=== PATIENT | female | born 2000 | race American Indian/Alaskan Native ===

== ENCOUNTER 2021-01-23 18:58 | Emergency (ER) | payer SELFPAY ==
[2021-01-23] MEDS ORDERED: HALOPERIDOL LACTATE 5 MG/1 ML INJ IM ONE (19:19)
--- NOTE | 2021-01-23 19:21 | Emergency Department Report ---
ED General Adult HPI - General Stated complaint: ANXIETY ATTACK Time Seen by Provider: 01/23/21 19:19 - History of Present Illness Initial comments: Patient presents by ambulance secondary to anxiety. History is obtained from EMS as the patient will not speak. She is having a panic attack. They report that the patient started to have a panic attack at home. She thought that she might be having an allergic reaction because she was in the proximity grapes. 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 She would did not come into contact with the grapes. Family try to get her calm down. They were unsuccessful. They called EMS. EMS has been try to get her to calm down. They have been unsuccessful. Again, patient will not converse. She will look around the room. She is hyperventilating but will not interact in any other form or fashion. History is obtained from EMS. - Related Data Allergies Allergy/AdvReac Type Severity Reaction Status Date / Time grape AdvReac Anaphylaxis Verified 01/23/21 19:34 orange AdvReac Anaphylaxis Verified 01/23/21 19:34 ED Review of Systems ROS: Stated complaint: ANXIETY ATTACK Other details as noted in HPI Comment: Unobtainable due to pts medical conditions ED Past Medical Hx - Past Medical History Previous Medical History?: Yes Additional medical history: anxiety per EMS - Family History Family history: other ( cannot be obtained from the patient secondary to hyperventilation) ED Physical Exam - General Limitations: Physical Limitation ( hyperventilation), Other ( She is not hypoxic. Pulse ox by EMS was normal.) General appearance: alert, in distress - Head Head exam: Present: atraumatic, normocephalic, normal inspection - Eye Eye exam: Present: normal appearance, EOMI. Absent: scleral icterus - ENT ENT exam: Present: normal exam, mucous membranes dry, normal external ear exam - Neck Neck exam: Present: normal inspection. Absent: lymphadenopathy - Respiratory Respiratory exam: Present: normal lung sounds bilaterally, other ( hyperventilating) - Cardiovascular Cardiovascular Exam: Present: normal rhythm, tachycardia - GI/Abdominal GI/Abdominal exam: Present: soft - Extremities Exam Extremities exam: Present: normal capillary refill. Absent: pedal edema - Back Exam Back exam: Absent: CVA tenderness (R), CVA tenderness (L) - Neurological Exam Neurological exam: Present: alert, reflexes normal, other ( hyperventilating. She is not verbal. She will look around the room and track. She would not follow any commands.) - Psychiatric Psychiatric exam: Present: anxious - Skin Skin exam: Present: warm, dry ED Course Vital Signs 01/23/21 01/23/21 01/23/21 19:37 19:50 19:58 Temperature 98.7 F Pulse Rate 122 H Respiratory 22 Rate Blood Pressure Blood Pressure 134/82 [Left] O2 Sat by Pulse 99 100 100 Oximetry 01/23/21 01/23/21 20:01 20:15 Temperature Pulse Rate 110 H 116 H Respiratory 19 24 Rate Blood Pressure 109/71 109/71 Blood Pressure [Left] O2 Sat by Pulse 100 100 Oximetry - Reevaluation(s) Reevaluation #1: 01/23/21 19:20 1910- EMS was met upon arrival. Haldol was ordered. Reevaluation #2: 01/23/21 20:06 Patient is now conversing. Reevaluation #3: 01/23/21 20:33 Patient is now conversant. She feels better. She states that her family member opened a can of orange juice in her presence. This was simply within the same room as her. She smelled orange juice and she states that that is what caused her allergic reaction. She had no throat tightness. She had no hives. She had no rash. She states that after an allergic reaction, she always has a panic attack. She states that she feels better now. ED Medical Decision Making - Medical Decision Making Patient presented with hyperventilation. I truly believe this was an anxiety attack. I do not believe this represents an allergic reaction. It would be unusual for someone to smell something and have an allergic reaction in that fashion. Regardless, patient is feeling better. There is no airway compromise. She has no evidence of hives or angioedema. She was treated symptomatically. She was no longer hyperventilating. Critical Care Time: No Critical care attestation.: If time is entered above; I have spent that time in minutes in the direct care of this critically ill patient, excluding procedure time. ED Disposition Clinical Impression: Panic attack Disposition: 01 HOME / SELF CARE / HOMELESS Is pt being admited?: No Does the pt Need Aspirin: No Condition: Stable Instructions: Panic Attack Additional Instructions: Avoid oranges, grapes, and other things you may react to. Continue to use Benadryl [id number]. Return for problems. Follow-up with your regular doctor for recheck. Referrals: SUSHIL GERMAIN MD [Staff Physician] - 3-5 Days PRIMARY CAREMD [Referring] - 3-5 Days
[2021-01-23] MEDS ORDERED: diphenhydrAMINE 50 MG/ML VIAL IV ONE (20:05)
[2021-01-23 20:24] VITALS: BP 109/71
== END 2021-01-24 01:30 | disposition home or self-care (01) ==
LOC: ED 18:58
DX: F41.0 Panic disorder [episodic paroxysmal anxiety] (principal); Z91.018 Allergy to other foods
CPT/HCPCS: 96372; 99283; J1630; J1200

== ENCOUNTER 2022-01-05 10:11 | Emergency (ER) | payer SELFPAY ==
[2022-01-05] MEDS ORDERED: SODIUM CHLORIDE 0.9% 1000 ML 1,000 ML IV ONE (10:39)
[2022-01-05 11:51] LABS: Alanine Aminotransferase 12 units/L (7-56); Albumin 4.7 g/dL (3.9-5); Blood Urea Nitrogen 8 mg/dL (7-17); Calcium 9.8 mg/dL (8.4-10.2); Hemolysis Index 6
[2022-01-05 12:05] LABS: Basophils % (Auto) 0.7 % (0.0-1.8); Eosinophils # (Auto) 0.1 K/mm3 (0.0-0.4); Eosinophils % (Auto) 1.8 % (0.0-4.3); Hematocrit 38.6 % (30.3-42.9); Hemoglobin 12.9 gm/dl (10.1-14.3); Lymphocytes % (Auto) 15.8 % (13.4-35.0); Mean Corpuscular HGB Conc 34 % (30-34); Mean Corpuscular Volume 97 fl (79-97); Monocytes # (Auto) 0.3 K/mm3 (0.0-0.8); Monocytes % (Auto) 4.3 % (0.0-7.3); Platelet Count 234 K/mm3 (140-440); Red Blood Count 3.98 M/mm3 (3.65-5.03); Red Cell Distribution Width 14.1 % (13.2-15.2)
[2022-01-05 12:07] LABS: Color,Urine Yellow (Yellow)
[2022-01-05 12:10] LABS: Amorphous Crystals,Urine Few; Bacteria,Urine 1+ /HPF (Negative); Mucus,Urine 3+ /HPF
[2022-01-05 12:12] LABS: HCG Qualitative,Urine Negative (Negative)
[2022-01-05 12:13] LABS: BUN/Creatinine Ratio 13
[2022-01-05 12:15] LABS: Amphetamine Screen,Urine Negative; Benzodiazepines Screen,Urine Negative; Cannabinoid Screen,Urine Negative; Cocaine Screen,Urine Negative; Methadone Screen,Urine Negative; Opiate Screen,Urine Negative
[2022-01-05 12:38] VITALS: BP 109/69
--- NOTE | 2022-01-05 12:44 | Emergency Department Report ---
ED General Adult HPI - General Chief complaint: Overdose Stated complaint: POSS OVERDOSE PUI?: No Time Seen by Provider: 01/05/22 10:36 Source: patient, family Mode of arrival: Ambulatory Limitations: No Limitations - History of Present Illness Severity scale (0 -10): 0 - Related Data Allergies Allergy/AdvReac Type Severity Reaction Status Date / Time blueberry Allergy Anaphylaxis Verified 01/05/22 10:18 grape AdvReac Anaphylaxis Verified 01/23/21 19:34 orange AdvReac Anaphylaxis Verified 01/23/21 19:34 ED Review of Systems ROS: Stated complaint: POSS OVERDOSE Other details as noted in HPI Constitutional: denies: chills, fever Eyes: denies: eye pain, eye discharge, vision change ENT: denies: ear pain, throat pain Respiratory: denies: cough, shortness of breath, wheezing Cardiovascular: denies: chest pain, palpitations Endocrine: no symptoms reported Gastrointestinal: denies: abdominal pain, nausea, diarrhea Genitourinary: denies: urgency, dysuria, discharge Musculoskeletal: denies: back pain, joint swelling, arthralgia Skin: denies: rash, lesions Neurological: denies: headache, weakness, paresthesias Psychiatric: denies: anxiety, depression Hematological/Lymphatic: denies: easy bleeding, easy bruising ED Past Medical Hx - Past Medical History Previous Medical History?: No Hx Hypertension: No Additional medical history: anxiety per EMS - Surgical History Past Surgical History?: No - Social History Smoking Status: Unknown if ever smoked ED Physical Exam - General Limitations: No Limitations General appearance: alert, in no apparent distress - Head Head exam: Present: atraumatic, normocephalic - Eye Eye exam: Present: normal appearance - ENT ENT exam: Present: mucous membranes moist - Neck Neck exam: Present: normal inspection - Respiratory Respiratory exam: Present: normal lung sounds bilaterally. Absent: respiratory distress - Cardiovascular Cardiovascular Exam: Present: regular rate, normal rhythm. Absent: systolic murmur, diastolic murmur, rubs, gallop - GI/Abdominal GI/Abdominal exam: Present: soft, normal bowel sounds - Extremities Exam Extremities exam: Present: normal inspection - Back Exam Back exam: Present: normal inspection - Neurological Exam Neurological exam: Present: alert, oriented X3 - Psychiatric Psychiatric exam: Present: normal affect, normal mood - Skin Skin exam: Present: warm, dry, intact, normal color. Absent: rash ED Course Vital Signs 01/05/22 01/05/22 01/05/22 10:20 10:55 11:19 Pulse Rate 122 H 108 H Respiratory 20 16 Rate Blood Pressure Blood Pressure 109/82 [Right] O2 Sat by Pulse 99 99 99 Oximetry 01/05/22 01/05/22 01/05/22 11:31 11:45 12:01 Pulse Rate 99 H 103 H 100 H Respiratory 16 20 22 Rate Blood Pressure 112/76 107/66 107/66 Blood Pressure [Right] O2 Sat by Pulse 100 100 Oximetry 01/05/22 01/05/22 12:15 12:31 Pulse Rate 98 H 101 H Respiratory 19 20 Rate Blood Pressure 109/69 109/69 Blood Pressure [Right] O2 Sat by Pulse 100 100 Oximetry ED Medical Decision Making - Lab Data Result diagrams: 01/05/22 11:02 01/05/22 11:02 - Medical Decision Making work up negative vss , UDS negative Critical care attestation.: If time is entered above; I have spent that time in minutes in the direct care of this critically ill patient, excluding procedure time. ED Disposition Clinical Impression: Dizziness Disposition: 01 HOME / SELF CARE / HOMELESS Is pt being admited?: No Does the pt Need Aspirin: No Condition: Stable Instructions: Dizziness, [id number] Referrals: PRIMARY CARE, [Primary Care Provider] - 3-5 Days
== END 2022-01-05 14:46 | disposition home or self-care (01) ==
LOC: ED 10:11
DX: R42 Dizziness and giddiness (principal); Z91.018 Allergy to other foods; Z79.899 Other long term (current) drug therapy
CPT/HCPCS: 36415; 80053; 80307; 81001; 81025; 85025; 96360; 96361; 99284; J7030; 80320; G0480